=== PATIENT | male | born 1985 | race Caucasian/White ===

== ENCOUNTER → 2017-05-14 | Day surgery (SDC) | payer OTHER ==
[~2017-05-14] VITALS: Ht 175.3 cm; Wt 74.8 kg
[~2017-05-14] MED LIST: PERCOCET 5-3251 EACH PO
--- NOTE | 2017-05-14 18:03 | Operative Report ---
Operative/Inv Procedure Report Surgery Date: 05/14/17 Name of Procedure: Anterior mesh repair of recurrent right inguinal hernia Pre-Operative Diagnosis: Recurrent right inguinal hernia Post-Operative Diagnosis: Same, medial Estimated Blood Loss: scant Surgeon/Instrument Setter: Manuelito LUEVANO,Mario LATIF Anesthesia: general endotracheal tube Operative/Procedure Note Note: Patient was placed on the OR table in the supine position. After successful induction of general anesthesia the patient's abdomen pelvis and scrotum were clipped prepped and draped in the usual sterile fashion. We planned a right inguinal incision just above and parallel to the inguinal ligament between the iliac crest and pubis, and 5 cm long given the body habitus and size of the hernia. Local anesthetic was injected both superficially and deep, then the incision was made with a 10 blade deepened through the subcutaneous layer them with cautery through Debbie's fascia we cleared off the external oblique aponeurosis injected more local anesthetic into the canal, and then incised it with Metzenbaums in the direction of its fibers opening the inguinal canal sparing the ilioinguinal nerve. The recurrence was medial, about 2.5 cm wide, and still some incarcerated preperitoneal fat. After and reducing the sac, we took a Progrip Parietex polypropylene Velcro type mesh with the keyhole oriented and placed it over the defect starting at the pubic tubercle with some medial overlap anchoring it with a 2-0 Prolene suture continuing it inferiorly and laterally running fashion to the shelving edge of the inguinal ligament care was taken to avoid the iliac vessels deep. By this time we had also isolated the cord structures the vas and the main vessels and the pampiniform plexus and retracted them with a Cain drain and we had to loop and arrange this keyhole mesh around it restoring the deep ring. The crotch of the mesh at the keyhole was not too loose so we didn't add sutures here. The rest of the mesh was tacked down medially to the rectus fascia superiorly to the internal oblique aponeurosis avoiding injury to the iliohypogastric nerve and laterally towards the ASIS keeping it flat with multiple interrupted 2-0 Vicryl sutures. The area was irrigated. The inguinal incision was closed in layers using 2-0 Vicryl for the external oblique, recreating the sperficial ring, sparing the nerve, followed by 3-0 Vicryl for Debbie's fascia followed by running subcuticular 4-0 Biosyn suture for the skin itself followed by Mastisol Steri-Strips Telfa and an island dressing. EBL minimal Lap and sponge and sponge counts: correct Wound expectancy: Clean IV fluids: crystalloid Complications: none Patient tolerated the procedure well was awakened and extubated and returned to the recovery room in satisfactory condition. Patient tolerated the procedure well was awakened and extubated and returned to the recovery room in satisfactory condition.
== END ==
LOC: STS 03:12
DX: K40.91 Unilateral inguinal hernia, without obstruction or gangrene, recurrent (principal); G43.909 Migraine, unspecified, not intractable, without status migrainosus
CPT/HCPCS: C1781; C9399; J0131; J2250; J3490